=== PATIENT | male | born 1990 | race Caucasian/White ===

== ENCOUNTER 2019-01-23 15:19 | Emergency (ER) | payer OTHER ==
[2019-01-23] MEDS ORDERED: Lidocaine 5% Patch TD STA (15:45)
[2019-01-23 15:59] VITALS: TEMP 98
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
[2019-01-23 17:45] VITALS: BP 129/72; PULSE 80; RESP 20
[2019-01-26] VITALS: O2SAT 97
== END 2019-01-23 17:43 | disposition home or self-care (01) ==
LOC: H.ER 15:19
DX: M54.9 Dorsalgia, unspecified (principal); M54.12 Radiculopathy, cervical region; V43.52XA Car driver injured in collision with other type car in traffic accident, initial encounter; Y92.410 Unspecified street and highway as the place of occurrence of the external cause